=== PATIENT | male | born 1940 | race Caucasian/White ===

== ENCOUNTER → 2018-03-17 | Outpatient (CLI) | payer MEDICARE ==
--- NOTE | 2018-03-17 12:27 | ECHOS ---
STRESS ECHOCARDIOGRAM DATE OF SERVICE: 03/17/2018 INDICATIONS: Chest pain. MEDICATIONS: BASELINE HEART RATE: 98 BASELINE BLOOD PRESSURE: 162/63 MAXIMUM HEART RATE: 142 MAXIMUM BLOOD PRESSURE: 204/67 85% MPHR: 122 100% MPHR: 143 METS: 4 MAXIMUM STAGE REACHED: I TOTAL EXERCISE TIME: 3 minutes CLINICAL INFORMATION: Baseline EKG shows sinus rhythm, normal axis, normal intervals. Patient exercised on Junaid protocol for a total of 3 minutes, achieving 4 METs, 99% of predicted maximal heart rate without chest pain. At peak exercise, frequent PVCs are noted. Baseline echo shows normal left ventricular size, wall motion and systolic function. Postexercise, there is normal hyperdynamic response of all segments of myocardium noted. CONCLUSIONS: 1. Poor exercise tolerance. 2. Negative stress test by EKG criteria. 3. Negative stress echo. 4. Frequent ventricular ectopy. CATRACHITA / ERICAN: [id number] /
== END | disposition home or self-care (01) ==
LOC: RADNMMAIN 10:16
PROVIDERS: ATTEND Family Medicine
DX: I49.3 Ventricular premature depolarization (principal); I10 Essential (primary) hypertension
CPT/HCPCS: C8930; Q9950; 93351

== ENCOUNTER 2020-10-03 20:06 | Observation (INO) | payer MEDICARE ==
--- NOTE | 2020-10-03 20:45 | ED ---
Chest Pain HPI - General Chief Complaint: Chest Pain Stated Complaint: chest pain Time Seen by Provider: 10/03/20 20:20 Source: patient Mode of arrival: ambulatory Limitations: no limitations - History of Present Illness Initial Comments: Patient is an 80-year-old male, with history of hypertension, diabetes, presenting to emergency Department with complaints of chest pain, nausea and jaw pain that happened about 3 hours prior to arrival. Patient states he went to walk to the kitchen when he felt an episode of chest pain located in the left side of his chest, this lasted for approximately 2-3 minutes. Patient states afterwards he felt some mild nausea, upset stomach and then started having a little bit of left-sided jaw pain. Currently, he does not have any chest pain no jaw pain. He states he feels a little nauseous but no abdominal pain no vomiting or diarrhea. Patient had an echo performed 2 years ago which was normal. He denies any shortness of breath, fever, chills. He denies any recent changes to her medication. He has no further complaints at this time. - Related Data Home Medications Medication Instructions Recorded Confirmed ALPRAZolam [Xanax] 0.5 mg PO DAILY PRN 10/03/20 10/03/20 Atorvastatin [Lipitor] 80 mg PO HS 10/03/20 10/03/20 Enalapril [Vasotec] 5 mg PO DAILY 10/03/20 10/03/20 Ketoconazole 2% Shampoo [Nizoral] 1 applic TOPICAL Q72H 10/03/20 10/03/20 Latanoprost/Pf [Latanoprost 0.005% 1 drop LEFT EYE HS 10/03/20 10/03/20 Eye Drop] Levothyroxine Sodium 25 mcg PO DAILY 10/03/20 10/03/20 Omeprazole 20 mg PO DAILY 10/03/20 10/03/20 glipiZIDE [Glucotrol] 5 mg PO DAILY 10/03/20 10/03/20 Allergies Allergy/AdvReac Type Severity Reaction Status Date / Time codeine AdvReac Unknown Verified 10/03/20 21:33 Review of Systems ROS Statement: Those systems with pertinent positive or pertinent negative responses have been documented in the HPI. ROS Other: All systems not noted in ROS Statement are negative. EKG Findings - EKG Comments: EKG Findings:: Normal sinus rhythm, no signs of acute ischemia. Ventricular rate 83, Shaffer 154, QT 394. 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 Patient is nontoxic and in no acute distress. HEAD: Atraumatic, normocephalic. EYES: Pupils equal round and reactive to light, extraocular movements intact, sclera anicteric, conjunctiva are normal. Eyelids were unremarkable. ENT: TMs normal, nares patent, oropharynx clear without exudates. Moist mucous membranes. NECK: Normal range of motion, supple without lymphadenopathy or JVD. LUNGS: Unlabored respirations. Breath sounds clear to auscultation bilaterally and equal. No wheezes rales or rhonchi. HEART: Regular rate and rhythm without murmurs, rubs or gallops. ABDOMEN: Soft, nontender, normoactive bowel sounds. No guarding, no rebound. No masses appreciated. : Deferred MUSCULOSKELETAL: Normal extremities with adequate strength and normal range of motion, no pitting or edema. No clubbing or cyanosis. NEUROLOGICAL: Patient is alert and oriented x 3. Motor and sensory are also intact. Cranial nerves II through XII grossly intact. Symmetrical smile. Normal speech, normal gait. PSYCH: Normal mood, normal affect. SKIN: Warm, Dry, normal turgor, no rashes or lesions noted. Limitations: no limitations Course Vital Signs 10/03/20 10/03/20 20:09 22:01 Temperature 98.7 F Pulse Rate 104 H 68 Respiratory 18 16 Rate Blood Pressure 145/106 154/81 O2 Sat by Pulse 94 L 100 Oximetry Chest Pain [facility] Patient is an 80-year-old male here for chest pain, nausea that happened 2 hours prior to arrival. EKG shows no acute changes at this time, chest x-ray is normal. Labs show no acute abnormality, troponin is negative. No fevers or chills. Patient has had no chest pain the ER. Given patient's presentation of the symptoms, patient will be admitted for chest pain rule out, serial troponins, cardiac consult. Patient is agreeable with this plan of care. Patient was accepted by Dr. Cunningham. Case discussed with Dr. Mays. Disposition Clinical Impression: Chest pain Disposition: ADMITTED IP TO THIS HOSP Condition: Stable Is patient prescribed a controlled substance at d/c from ED?: No Referrals: Juan Coyle MD [Primary Care Provider] - 1-2 days Decision Date: 10/03/20 Decision Time: 21:59
[2020-10-03 21:04] LABS: Basophils # (A) 0.2 k/uL (0-0.2); Basophils % (A) 2 %; Eosinophils # (A) 0.3 k/uL (0-0.7); Eosinophils % (A) 3 %; HCT 41.4 % (39.0-53.0); HGB 14.2 gm/dL (13.0-17.5); Lymphocytes # (A) 1.2 k/uL (1.0-4.8); Lymphocytes % (A) 13 %; MCH 29.7 pg (25.0-35.0); MCHC 34.3 g/dL (31.0-37.0); MCV 86.6 fL (80.0-100.0); Mean Platelet Volume 6.7; Monocytes # (A) 0.5 k/uL (0-1.0); Monocytes % (A) 5 %; Neutrophils # (A) 6.6 k/uL (1.3-7.7); Neutrophils % (A) 75 %; Platelet Count 322 k/uL (150-450); RBC 4.79 m/uL (4.30-5.90); RDW 12.6 % (11.5-15.5); WBC 8.8 k/uL (3.8-10.6)
--- NOTE | 2020-10-03 21:13 | XR ---
EXAMINATION TYPE: XR chest 2V DATE OF EXAM: 10/03/2020 COMPARISON: 03/02/2014 HISTORY: Chest pain TECHNIQUE: FINDINGS: Heart and mediastinum are normal. Lungs are clear of infiltrate. There is 5 mm calcified gr anuloma in the left midlung. The other lung zendejas are clear. Diaphragm is normal. Bony thorax is int act. There are chest leads. IMPRESSION: No active cardiopulmonary disease. No change.
[2020-10-03 21:17] LABS: ALT 29 U/L (4-49); AST 33 U/L (17-59); African American GFR (CKD) >90 (>60 ml/min/1.73 sqM); Albumin 4.5 g/dL (3.5-5.0); Alkaline Phosphatase 94 U/L (38-126); Anion Gap 10 mmol/L; Blood Urea Nitrogen 22 mg/dL (9-20); Calcium 9.6 mg/dL (8.4-10.2); Carbon Dioxide 22 mmol/L (22-30); Chloride 106 mmol/L (98-107); Glucose 249 mg/dL (74-99); Non-African American GFR(CKD) 82 (>60 ml/min/1.73 sqM); Sodium 138 mmol/L (137-145); Total Bilirubin 0.4 mg/dL (0.2-1.3); Total Protein 7.6 g/dL (6.3-8.2)
[2020-10-03 21:20] LABS: INR 0.9 (<1.2); Partial Thromboplastin Time 23.7 sec (22.0-30.0); Prothrombin Time 9.8 sec (9.0-12.0)
[2020-10-03 21:21] LABS: Potassium 4.2 mmol/L (3.5-5.1)
[2020-10-03] MEDS ORDERED: NITROGLYCERIN SL TABS 0.4 MG TAB SUBLINGUAL PRN (21:57)
[2020-10-04 02:50] VITALS: RESP 18
[2020-10-04 06:06] LABS: Glucose,Whole Blood 152 mg/dL (75-99)
[2020-10-04 06:17] LABS: Cholesterol 134 mg/dL (<200); HDL Cholesterol 37 mg/dL (40-60); LDL Cholesterol,Calculated 82 mg/dL (0-99); Triglycerides 74 mg/dL (<150)
[2020-10-04] MEDS ORDERED: ALPRAZolam 0.5 MG TAB PO PRN (06:55)
[2020-10-04] MEDS ORDERED: PANTOPRAZOLE 40 MG TABLET PO SCH (07:30)
[2020-10-04] MEDS ORDERED: DOBUTamine DRIP for NUC MED 500 MG in DEXTROSE/WATER 1 250ML.BAG IV ONE (08:15)
[2020-10-04] MEDS ORDERED: lisinopriL 10 MG TAB PO SCH (09:00)
[2020-10-04] MEDS ORDERED: ASPIRIN 81 MG PO SCH (09:00)
[2020-10-04] MEDS ORDERED: LEVOTHYROXINE 25 MCG TAB PO SCH (09:00)
[2020-10-04] MEDS ORDERED: ASPIRIN 325 MG TAB PO SCH (09:00)
[2020-10-04 10:14] VITALS: BP 140/75; PULSE 87; TEMP 97.9
--- NOTE | 2020-10-04 11:13 | P.CRDCN ---
History of Present Illness History of present illness: HISTORY OF PRESENTING ILLNESS This is a pleasant 80-year-old male past medical history significant for hypertension, dyslipidemia, diabetes mellitus and rheumatic fever as a child. 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 We have been asked to see in consultation for chest pain. He states yesterday while walking from the kitchen to the living room he had an episode of chest discomfort on the left side of his stress described as a tightness. The disc omfort lasted for a couple of minutes and seemed to radiate to his jaw although it with bilateral upper jaw at the temporomandibular joint. The patient states he has been clenching and grinding his teeth for the previous one to 2 weeks. He did also feel mildly nauseated but never vomited. He did have the urge to have a bowel movement which was a regular bowel movement for him no diarrhea or abdominal discomfort. His symptoms subsided on their own and has not recurred since that time. He underwent a stress echo 2 years ago that was negative although he only walked on the treadmill for 3 minutes. DIAGNOSTICS EKG reveals sinus mechanism with no acute ST or T wave abnormalities noted. Chest xray negative for an acute cardiopulmonary process. Laboratory reviewed, CBC unremarkable, sodium 138, potassium 4.2, creatinine 0.87, magnesium 2.0, cardiac enzymes negative 3, LDL 82 and HDL 37. Current cardiac medications include atorvastatin 80 mg at bedtime and enalapril 5 mg daily. REVIEW OF SYSTEMS At the time of my exam: CONSTITUTIONAL: Denies fever or chills. CARDIOVASCULAR: Denies chest pain, shortness of breath, orthopnea, PND or palpitations. RESPIRATORY: Denies cough. GASTROINTESTINAL: Denies abdominal pain, diarrhea, constipation, nausea or vomiting. MUSCULOSKELETAL: Denies myalgias. NEUROLOGIC: Denies numbness, tingling or weakness. ENDOCRINE: Denies fatigue, weight change, polydipsia or polyurina. GENITOURINARY: Denies burning, hematuria or urgency with micturation. HEMATOLOGIC: Denies history of anemia or bleeding. PHYSICAL EXAMINATION Blood pressure 140/75 heart rate 87 afebrile and maintaining oxygen saturation on room air. CONSTITUTIONAL: No apparent distress. HEENT: Head is normocephalic. Pupils are equal, round. Sclerae anicteric. Mucous membranes of the mouth are moist. No JVD. No carotid bruit. CHEST EXAMINATION: Lungs are clear to auscultation. No chest wall tenderness is noted on palpation or with deep breathing. HEART EXAMINATION: Regular rate and rhythm. S1, S2 heard. No murmurs, gallops or rub. ABDOMEN: Soft, nontender. Positive bowel sounds. EXTREMITIES: 2+ peripheral pulses, no lower extremity edema and no calf tenderness. NEUROLOGIC EXAMINATION: Patient is awake, alert and oriented x3. ASSESSMENT Chest pain Diabetes mellitus Hypertension Dyslipidemia PLAN An acute coronary event has been ruled out. The jaw pain does not appear to be related to the chest pain, this is secondary to clenching. Echocardiogram has been obtained and will be fully reviewed. Bedside evaluation reveals preserved LV systolic function. Proceed with dobutamine stress echocardiogram to assess for stress-induced cardiac ischemia. If stress test is normal other etiologies for chest pain to be discussed per the primary care team, possible GI etiology. Follow up with Dr. Noe in the office in 2 weeks. Thank you kindly for this consultation. Nurse Practitioner note has been reviewed, I agree with a documented findings and plan of care. Patient was seen and examined. 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, History of Any Multi-Drug Resistant Organisms: None Reported Past Surgical History: No Surgical Hx Reported Past Psychological History: No Psychological Hx Reported Smoking Status: Former smoker Past Alcohol Use History: None Reported Past Drug Use History: None Reported Medications and Allergies Home Medications Medication Instructions Recorded Confirmed Type ALPRAZolam [Xanax] 0.5 mg PO DAILY PRN 10/03/20 10/03/20 History Atorvastatin [Lipitor] 80 mg PO HS 10/03/20 10/03/20 History Enalapril [Vasotec] 5 mg PO DAILY 10/03/20 10/03/20 History Ketoconazole 2% Shampoo [Nizoral] 1 applic TOPICAL Q72H 10/03/20 10/03/20 History Latanoprost/Pf [Latanoprost 0.005% 1 drop LEFT EYE HS 10/03/20 10/03/20 History Eye Drop] Levothyroxine Sodium 25 mcg PO DAILY 10/03/20 10/03/20 History Omeprazole 20 mg PO DAILY 11/11/20 11/11/20 History glipiZIDE [Glucotrol] 5 mg PO DAILY 10/03/20 10/03/20 History Allergies Allergy/AdvReac Type Severity Reaction Status Date / Time codeine AdvReac Unknown Verified 10/03/20 21:33 Physical Exam Vitals: Vital Signs Temp Pulse Pulse Resp BP BP Pulse Ox 10/04/20 02:33 98.2 F 63 18 152/79 96 10/04/20 01:45 97.9 F 63 18 143/81 96 10/03/20 22:01 68 16 154/81 100 10/03/20 20:09 98.7 F 104 H 18 145/106 94 L Intake and Output 10/03/20 10/04/20 10/04/20 22:59 06:59 14:59 Other: Voiding Method Toilet # Voids 1 Weight 83.915 kg 83.915 kg Results 10/03/20 20:53 10/03/20 20:53 Cardiac Enzymes 10/03/20 10/03/20 10/04/20 Range/Units 20:53 20:53 00:51 AST 33 (17-59) U/L Troponin I <0.012 <0.012 (0.000-0.034) ng/mL 10/04/20 Range/Units 05:03 AST (17-59) U/L Troponin I <0.012 (0.000-0.034) ng/mL Coagulation 10/03/20 Range/Units 20:53 PT 9.8 (9.0-12.0) sec APTT 23.7 (22.0-30.0) sec Lipids 10/04/20 Range/Units 05:03 Triglycerides 74 (<150) mg/dL Cholesterol 134 (<200) mg/dL HDL Cholesterol 37 L (40-60) mg/dL CBC 10/03/20 Range/Units 20:53 WBC 8.8 (3.8-10.6) k/uL RBC 4.79 (4.30-5.90) m/uL Hgb 14.2 (13.0-17.5) gm/dL Hct 41.4 (39.0-53.0) % Plt Count 322 (150-450) k/uL Comprehensive Metabolic Panel 10/03/20 Range/Units 20:53 Sodium 138 (137-145) mmol/L Potassium 4.2 (3.5-5.1) mmol/L Chloride 106 (98-107) mmol/L Carbon Dioxide 22 (22-30) mmol/L BUN 22 H (9-20) mg/dL Creatinine 0.87 (0.66-1.25) mg/dL Glucose 249 H (74-99) mg/dL Calcium 9.6 (8.4-10.2) mg/dL AST 33 (17-59) U/L ALT 29 (4-49) U/L Alkaline Phosphatase 94 (38-126) U/L Total Protein 7.6 (6.3-8.2) g/dL Albumin 4.5 (3.5-5.0) g/dL Current Medications Generic Name Dose Route Start Last Admin Trade Name Freq PRN Reason Stop Dose Admin Alprazolam 0.5 mg 10/04/20 06:55 Alprazolam 0.5 Mg Tab PO DAILY PRN Anxiety Aspirin 325 mg 10/04/20 09:00 Aspirin 325 Mg Tab PO DAILY ERICA Atorvastatin Calcium 80 mg 10/04/20 21:00 Atorvastatin 80 Mg Tab PO HS ERICA Latanoprost 1 drops 10/04/20 21:00 Latanoprost 0.005% Ophth Drops 2.5 Ml Btl LEFT EYE HS ERICA Levothyroxine Sodium 25 mcg 10/04/20 09:00 Levothyroxine 25 Mcg Tab PO DAILY@0630 ERICA Lisinopril 10 mg 10/04/20 09:00 Lisinopril 10 Mg Tab PO DAILY ERICA Nitroglycerin 0.4 mg 10/03/20 21:57 Nitroglycerin Sl Tabs 0.4 Mg Tab SUBLINGUAL Q5M PRN Chest Pain Pantoprazole Sodium 40 mg 10/04/20 07:30 Pantoprazole 40 Mg Tablet PO AC-BRKFST ERICA Intake and Output 10/03/20 10/04/20 10/04/20 22:59 06:59 14:59 Other: Voiding Method Toilet # Voids 1 Weight 83.915 kg 83.915 kg 10/03/20 20:53 10/03/20 20:53
--- NOTE | 2020-10-04 11:14 | P.HPIM ---
History of Present Illness H&P Date: 10/04/20 Chief Complaint: CHEST PAIN HISTORY AND PHYSICAL AND DISCHARGE SUMMARY: HISTORY OF PRESENT ILLNESS This is an 80-year-old male patient of Dr. Juan Coyle with past medical history of diabetes mellitus type 2, hypothyroidism, hyperlipidemia, hypertension, glaucoma. Patient states that he was just walking from the living room and kitchen and felt a sharp pain on the left side of his chest and lasted for about 2-3 minutes and went away on its own. He then had some upset stomach and took Tums and several aspirin. He didn't feel right in general kind of felt weak. He did not have any further episodes of chest pain. He denies shortness of breath, palpitations, cough or sputum production. No lightheadedness or d izziness. He is usually very active. He does give history of 2 recent episodes where he was very busy doing strenuous activity during the day and in the nighttime developed palpitations with left arm discomfort. At the time of evaluation, patient denies having any symptoms. Patient came into [facility] emergency center for evaluation. Initial blood pressure 155/106 with repeat at 154/81. Heart rate initially 104 currently in the 60s. Pulse ox 94% on room air, afebrile. CBC was normal, electrolytes normal. BUN 22 and creatinine 0.87. Blood sugar 249. Magnesium 2.0, potassium 4.2. Liver function tests normal. Troponins negative on 3 draws. Triglyceride 74, cholesterol 134, LDL 82 and HDL 37. EKG sinus rhythm with no acute ST changes. Chest x-ray revealed no acute cardio pulmonary disease.. REVIEW OF SYSTEMS At the time of my evaluation Constitutional: No fever, no chills, no night sweats. No weight change. No weakness, fatigue or lethargy. No daytime sleepiness. EENT: No headache. No blurred vision or double vision, no loss of vision. No loss of Hearing, no ringing in the ears, no dizziness. No nasal drainage or congestion. No epistaxis. No sore throat. Lungs: No shortness of breath, cough, no sputum production. No wheezing. Cardiovascular: No chest pain, no lower extremity edema. No palpitations. No paroxysmal nocturnal dyspnea. No orthopnea. No lightheadedness or dizziness. No syncopal episodes. Abdominal: No abdominal pain. No nausea, vomiting. No diarrhea. No constipation. No bloody or tarry stools.. No loss of appetite. Genitourinary: No dysuria, increased frequency, urgency. No urinary retention. Musculoskeletal: No myalgias. No muscle weakness, no gait dysfunction, no frequent falls. No back pain. No neck pain. Integumentary: No wounds, no lesions. No rash or pruritus. No unusual bruising. No change in hair or nails. Neurologic: No aphasia. No facial droop. No change in mentation. No head injury. No headache. No paralysis. No paresthesia. Psychiatric: No depression. No anxiety. No mood swings. Endocrine: No abnormal blood sugars. No weight change. No excessive sweating or thirst. No cold intolerance. SOCIAL HISTORY Patient was a smoker one to one and half packs per day for 30 years and quit in July 1989. He denies any alcohol use. 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 FAMILY HISTORY Father at 80 due to myocardial infraction. Mother at 86 from non- Hodgkin's lymphoma. Patient has 1 brother that at age 79 from coronary artery disease initially diagnosed at age 50. Patient does not have any sisters. Patient has 2 biological children with no major medical problems. PHYSICAL EXAMINATION Gen: This is an 80-year-old male. He is on stretcher and appears to be comfortable and in no acute distress. HEENT: Head is atraumatic, normocephalic. Pupils equal, round. Sclerae is anicteric. NECK: Supple. No JVD. No lymphadenopathy. No thyromegaly. LUNGS: Clear to auscultation. No wheezes or rhonchi. No intercostal retractions. HEART: Regular rate and rhythm. No murmur. ABDOMEN: Soft. Bowel sounds are present. No masses. No tenderness. EXTREMITIES: No pedal edema. No calf tenderness. Dorsalis pedis +2 bilaterally. NEUROLOGICAL: Patient is awake, alert and oriented x3. Cranial nerves 2 through 12 are grossly intact. ASSESSMENT AND PLAN 1. Chest pain with negative troponins, acute coronary syndrome ruled out. 2. 2 episodes of palpitations and left arm discomfort. 3. Hypertension. 4. Hyperlipidemia. 5. Diabetes mellitus type 2. 6. Hypothyroidism.. 7. Glaucoma. Patient placed on the observation unit. DISCHARGE PLAN Home. Impression and plan of care have been directed as dictated by the signing physician. Elda De Jesus nurse practitioner acting as scribe for signing physician. 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, History of Any Multi-Drug Resistant Organisms: None Reported Past Surgical History: No Surgical Hx Reported Past Psychological History: No Psychological Hx Reported Smoking Status: Former smoker Past Alcohol Use History: None Reported Past Drug Use History: None Reported Medications and Allergies Home Medications Medication Instructions Recorded Confirmed Type ALPRAZolam [Xanax] 0.5 mg PO DAILY PRN 10/03/20 10/03/20 History Atorvastatin [Lipitor] 80 mg PO HS 10/03/20 10/03/20 History Enalapril [Vasotec] 5 mg PO DAILY 10/03/20 10/03/20 History Ketoconazole 2% Shampoo [Nizoral] 1 applic TOPICAL Q72H 10/03/20 10/03/20 History Latanoprost/Pf [Latanoprost 0.005% 1 drop LEFT EYE HS 10/03/20 10/03/20 History Eye Drop] Levothyroxine Sodium 25 mcg PO DAILY 10/03/20 10/03/20 History Omeprazole 20 mg PO DAILY 10/03/20 10/03/20 History glipiZIDE [Glucotrol] 5 mg PO DAILY 10/03/20 10/03/20 History Allergies Allergy/AdvReac Type Severity Reaction Status Date / Time codeine AdvReac Unknown Verified 10/03/20 21:33 Physical Exam Vitals: Vital Signs Temp Pulse Pulse Resp BP BP Pulse Ox 10/04/20 02:33 98.2 F 63 18 152/79 96 10/04/20 01:45 97.9 F 63 18 143/81 96 10/03/20 22:01 68 16 154/81 100 10/03/20 20:09 98.7 F 104 H 18 145/106 94 L Intake and Output 10/03/20 10/04/20 10/04/20 22:59 06:59 14:59 Other: Voiding Method Toilet # Voids 1 Weight 83.915 kg 83.915 kg Results CBC & Chem 7: 10/03/20 20:53 10/03/20 20:53 Labs: Abnormal Lab Results - Last 24 Hours (Table) 10/03/20 10/04/20 10/04/20 Range/Units 20:53 05:03 06:05 BUN 22 H (9-20) mg/dL Glucose 249 H (74-99) mg/dL POC Glucose (mg/dL) 152 H (75-99) mg/dL HDL Cholesterol 37 L (40-60) mg/dL Thrombosis Risk Factor Assmnt - Choose All That Apply Each Factor Represents 1 point: Obesity (BMI >25) Other Risk Factors: Yes Each Risk Factor Represents 3 Points: Age 75 years or older Thrombosis Risk Factor Assessment Total Risk Factor Score: 4 Thrombosis Risk Factor Assessment Level: Moderate Risk
[2020-10-04 12:24] LABS: Glucose,Whole Blood 131 mg/dL (75-99)
--- NOTE | 2020-10-04 13:38 | P.STRESS ---
- Stress Test Note Stress Test Results/Findings: Exam Performed: dobutamine stress echo Exam Date: 10/04/20 Reason for Exam: Chest Pain Height: 5 ft 4 in Weight: 83.91 kg Protocol: Dobutamine Stage: 30 Duration of Exercise: 6:55 Resting Heart Rate: 73 Resting Blood Pressure: 155/78 Maximum Achieved Heart Rate: 155 Maximum Achieved Blood Pressure: 174/68 85% PMHR: 119 100% PMHR: 140 METS: NA Technologist Comment: Stress Test Results/Findings: Heart rate 73 beats a minute, blood pressure 155/78 mmHg Baseline telemetry ECG showed sinus rhythm with normal ST segments and occasional PVCs Patient received dobutamine infusion per protocol There was no ECG with ischemia Occasional PVCs and ventricular couplets noted No sustained arrhythmias Baseline 2-D echo images showed normal LV systolic function without segmental wall motion abnormalities With a dobutamine ms stepwise increment and overall LV contractility without development of any wall motion abnormalities @Recovery regional global LV systolic function within normal Impression no ECG or echocardiographic evidence of ischemia Occasional PVCs and ventricular couplets
--- NOTE | 2020-10-04 20:00 | ECHOF ---
Referral Reason:chest pain MEASUREMENTS -------- HEIGHT: 162.6 cm WEIGHT: 83.9 kg BP: 152/79 IVSd: 1.5 cm (0.6 - 1.1) LVIDd: 3.7 cm (3.9 - 5.3) LVPWd: 1.4 cm (0.6 - 1.1) IVSs: 2.0 cm LVIDs: 1.5 cm LVPWs: 1.6 cm RVIDd: 4.5 cm (< 3.3) LAESV Index (A-L): 37.20 ml/m Ao Diam: 3.0 cm (2.0 - 3.7) AV Cusp: 1.8 cm (1.5 - 2.6) EPSS: 0.5 cm MV E Wilbert: 0.92 m/s MV DecT: 186 ms MV A Wilbert: 1.13 m/s MV E/A Ratio: 0.81 RAP: 5.00 mmHg RVSP: 21.54 mmHg MV EF SLOPE: 68.10 mm/s (70 - 150) MV EXCURSION: 16.85 mm (> 18.000) FINDINGS -------- Sinus rhythm. This was a technically difficult study with suboptimal apical views. The left ventricular size is normal. There is moderate concentric left ventricular hypertrophy. O verall left ventricular systolic function is normal with, an EF between 60 - 65 %. The diastolic fi lling pattern is normal for the age of the patient {E/E'}. The right ventricle is severely enlarged. LA is moderately dilated 34-39 ml/m2 The right atrium was not well visualized. 5.0mg of Lumason was utilized for enhancement of images Interatrial and interventricular septum intact. The aortic valve is trileaflet and appears structurally normal. There is moderate aortic valve scle rosis. There is no evidence of aortic regurgitation. There is no evidence of aortic stenosis. Mild mitral regurgitation is present. Mild tricuspid regurgitation present. There is no evidence of pulmonary hypertension. The right v entricular systolic pressure, as measured by Doppler, is 21.54mmHg. There is no pulmonic regurgitation present. The aortic root size is normal. IVC Not well visulized. There is no pericardial effusion. CONCLUSIONS -------- 1. The left ventricular size is normal. 2. There is moderate concentric left ventricular hypertrophy. 3. Overall left ventricular systolic function is normal with, an EF between 60 - 65 %. 4. The right ventricle is severely enlarged. 5. LA is moderately dilated 34-39 ml/m2 6. There is moderate aortic valve sclerosis. 7. Mild mitral regurgitation is present. 8. Mild tricuspid regurgitation present. BEADER TENDER: Angela Cantor RDCS
[2020-10-04] MEDS ORDERED: LATANOPROST 0.005% OPHTH DROPS 2.5 ML BTL LEFT EYE SCH (21:00)
[2020-10-04] MEDS ORDERED: ATORVASTATIN 80 MG TAB PO SCH (21:00)
== END 2020-10-04 15:11 | disposition home or self-care (01) ==
LOC: EC 20:06 → 1SOBS 22:12 → 3NCARDOBS 22:32
PROVIDERS: ADMIT Internal Medicine Geriatric Medicine; ATTEND Internal Medicine Geriatric Medicine
DX: R07.89 Other chest pain (principal); I10 Essential (primary) hypertension; E11.9 Type 2 diabetes mellitus without complications; R11.0 Nausea; R68.84 Jaw pain; E78.5 Hyperlipidemia, unspecified; H40.9 Unspecified glaucoma; E03.9 Hypothyroidism, unspecified; Z86.19 Personal history of other infectious and parasitic diseases; Z87.891 Personal history of nicotine dependence; Z79.84 Long term (current) use of oral hypoglycemic drugs; Z79.890 Hormone replacement therapy; Z79.899 Other long term (current) drug therapy; Z88.5 Allergy status to narcotic agent
CPT/HCPCS: 93005 ×2; 99285; 36415; 93351; 80061; 80053; 83735; 84484 ×2; 85025; 85610; 85730; 71046; G0378 ×3; C8929; J1250; Q9950; 93306